=== PATIENT | male | born 1960 | race Caucasian/White ===

== ENCOUNTER 2018-09-03 14:50 | Emergency (ER) | payer BC ==
[2018-09-03 15:12] VITALS: RESP 18
[2018-09-03] MEDS ORDERED: KETOROLAC 30 MG/ML 1 ML VIAL IVP STA (16:07)
[2018-09-03] MEDS ORDERED: SODIUM CHLORIDE 0.9% 1,000 ML IV STA (16:07)
--- NOTE | 2018-09-03 16:12 | ED ---
General Adult HPI - General Chief complaint: Abdominal Pain Stated complaint: Poss kidney stones Time Seen by Provider: 09/03/18 15:25 Source: patient, RN notes reviewed Mode of arrival: ambulatory Limitations: no limitations - History of Present Illness Initial comments: Patient 58-year-old male presenting to the emergency room today with a chief complaint of left-sided flank pain that started approximately 2 hours ago. Patient does admit that feels similar to kidney stones that is had in the past. Currently rates pain 8/10. Does admit to some discomfort with voiding. Denies any other complaints currently. Patient denies any recent fever, chills, shortness of breath, chest pain, numbness or tingling, constipation or diarrhea , headaches or visual changes, or any other complaints. - Related Data Home Medications Medication Instructions Recorded Confirmed Aspirin EC [Ecotrin Low Dose] 81 mg PO DAILY 06/12/16 09/03/18 Calcium Carbonate [Calcium] 300 mg PO DAILY 06/12/16 09/03/18 Multivit-Mins/Iron/Folic/Lycop 1 each PO DAILY 07/14/16 09/03/18 [Centrum Men's Tablet] Glucosam/Roshan-Msm1/C/Joshua/Bosw 1 tab PO DAILY 09/03/18 09/03/18 [Glucosamine-Chondroitin Tablet] Previous Rx's Medication Instructions Recorded Tamsulosin [Flomax] 0.4 mg PO DAILY #14 cap 09/03/18 Allergies Allergy/AdvReac Type Severity Reaction Status Date / Time No Known Allergies Allergy Verified 09/03/18 15:42 Review of Systems ROS Statement: Those systems with pertinent positive or pertinent negative responses have been documented in the HPI. ROS Other: All systems not noted in ROS Statement are negative. Past Medical History Past Medical History: No Reported History, Hyperlipidemia Additional Past Medical History / Comment(s): kidney stones History of Any Multi-Drug Resistant Organisms: None Reported Past Surgical History: Appendectomy, Orthopedic Surgery, Tonsillectomy Additional Past Surgical History / Comment(s): vasectomy. COLONOSCOPY. LT SHOULDER ROTATOR CUFF Past Anesthesia/Blood Transfusion Reactions: No Reported Reaction Past Psychological History: No Psychological Hx Reported Smoking Status: Never smoker Past Alcohol Use History: Occasional Past Drug Use History: None Reported - Past Family History Mother Family Medical History: No Reported History General Exam - General Exam Comments Initial Comments: General: The patient is awake and alert, in no distress, and does not appear acutely ill. Eye: There is normal conjunctiva bilaterally. No signs of icterus. Ears, nose, mouth and throat: There are moist mucous membranes and no oral lesions. Neck: The neck is supple, there is no tenderness or JVD. Cardiovascular: There is a regular rate and rhythm. No murmur, rub or gallop is appreciated. Respiratory: Lungs are clear to auscultation, respirations are non-labored, breath sounds are equal. No wheezes, stridor, rales, or rhonchi. Gastrointestinal: Soft, non-distended, non-tender abdomen without masses or organomegaly noted. There is no rebound or guarding present. No CVA tenderness. Musculoskeletal: Normal ROM, no tenderness. Neurological: A&O x 3. CN II-XII intact, There are no obvious motor or sensory deficits. Coordination appears grossly intact. Speech is normal. Skin: Skin is warm and dry and no rashes or lesions are noted. Psychiatric: Cooperative, appropriate mood & affect, normal judgment. Limitations: no limitations Course Vital Signs 09/03/18 09/03/18 15:09 17:09 Temperature 97.5 F L Pulse Rate 75 62 Respiratory 18 18 Rate Blood Pressure 127/79 122/80 O2 Sat by Pulse 99 99 Oximetry Medical Decision Making - Medical Decision Making Patient reexamined at this time shows no signs of distress. He does admit that he thinks he may have passed kidney stone here in the emergency room. His urinalysis did show 61 red cells no sign of infection. Patient's remaining labs reviewed does have an 11,000 white count. She did admit to some abdominal pain was discussed about CT the abdomen and pelvis. He has declined. He states he does plan to follow-up with his family physician. Continue Flomax and anti-inflammatories for pain. He is advised to return here to emergency room if any symptoms increase or worsen. States understanding and is in agreement. - Lab Data Result diagrams: 09/03/18 17:02 09/03/18 17:02 Lab Results 09/03/18 09/03/18 09/03/18 Range/Units 17:02 17:02 17:02 WBC 11.2 H (3.8-10.6) k/uL RBC 5.22 (4.30-5.90) m/uL Hgb 17.7 H (13.0-17.5) gm/dL Hct 51.6 (39.0-53.0) % MCV 98.9 (80.0-100.0) fL MCH 33.8 (25.0-35.0) pg MCHC 34.2 (31.0-37.0) g/dL RDW 12.7 (11.5-15.5) % Plt Count 191 (150-450) k/uL Neutrophils % 83 % Lymphocytes % 9 % Monocytes % 6 % Eosinophils % 1 % Basophils % 0 % Neutrophils # 9.3 H (1.3-7.7) k/uL Lymphocytes # 1.0 (1.0-4.8) k/uL Monocytes # 0.7 (0-1.0) k/uL Eosinophils # 0.1 (0-0.7) k/uL Basophils # 0.0 (0-0.2) k/uL PT (9.0-12.0) sec INR (<1.2) APTT (22.0-30.0) sec Sodium 140 (137-145) mmol/L Potassium 4.8 (3.5-5.1) mmol/L Chloride 107 (98-107) mmol/L Carbon Dioxide 24 (22-30) mmol/L Anion Gap 9 mmol/L BUN 20 (9-20) mg/dL Creatinine 1.37 H (0.66-1.25) mg/dL Est GFR (CKD-EPI)AfAm 65 (>60 ml/min/1.73 sqM) Est GFR (CKD-EPI)NonAf 56 (>60 ml/min/1.73 sqM) Glucose 122 H (74-99) mg/dL Calcium 9.7 (8.4-10.2) mg/dL Total Bilirubin 0.6 (0.2-1.3) mg/dL AST 29 (17-59) U/L ALT 45 (21-72) U/L Alkaline Phosphatase 60 (38-126) U/L Total Protein 7.4 (6.3-8.2) g/dL Albumin 4.4 (3.5-5.0) g/dL Amylase 114 H (30-110) U/L Lipase 244 (23-300) U/L Urine Color Yellow Urine Appearance Clear (Clear) Urine pH 5.5 (5.0-8.0) Ur Specific [place] 1.015 (1.001-1.035) Urine Protein Trace H (Negative) Urine Glucose (UA) Negative (Negative) Urine Ketones Negative (Negative) Urine Blood Moderate H (Negative) Urine Nitrite Negative (Negative) Urine Bilirubin Negative (Negative) Urine Urobilinogen <2.0 (<2.0) mg/dL Ur Leukocyte Esterase Negative (Negative) Urine RBC 61 H (0-5) /hpf Urine WBC 1 (0-5) /hpf Calcium Oxalate Crystal Occasional H (None) /hpf Urine Mucus Rare H (None) /hpf 09/03/18 Range/Units 17:02 WBC (3.8-10.6) k/uL RBC (4.30-5.90) m/uL Hgb (13.0-17.5) gm/dL Hct (39.0-53.0) % MCV (80.0-100.0) fL MCH (25.0-35.0) pg MCHC (31.0-37.0) g/dL RDW (11.5-15.5) % Plt Count (150-450) k/uL Neutrophils % % Lymphocytes % % Monocytes % % Eosinophils % % Basophils % % Neutrophils # (1.3-7.7) k/uL Lymphocytes # (1.0-4.8) k/uL Monocytes # (0-1.0) k/uL Eosinophils # (0-0.7) k/uL Basophils # (0-0.2) k/uL PT 10.1 (9.0-12.0) sec INR 0.9 (<1.2) APTT 24.3 (22.0-30.0) sec Sodium (137-145) mmol/L Potassium (3.5-5.1) mmol/L Chloride (98-107) mmol/L Carbon Dioxide (22-30) mmol/L Anion Gap mmol/L BUN (9-20) mg/dL Creatinine (0.66-1.25) mg/dL Est GFR (CKD-EPI)AfAm (>60 ml/min/1.73 sqM) Est GFR (CKD-EPI)NonAf (>60 ml/min/1.73 sqM) Glucose (74-99) mg/dL Calcium (8.4-10.2) mg/dL Total Bilirubin (0.2-1.3) mg/dL AST (17-59) U/L ALT (21-72) U/L Alkaline Phosphatase (38-126) U/L Total Protein (6.3-8.2) g/dL Albumin (3.5-5.0) g/dL Amylase (30-110) U/L Lipase (23-300) U/L Urine Color Urine Appearance (Clear) Urine pH (5.0-8.0) Ur Specific [place] (1.001-1.035) Urine Protein (Negative) Urine Glucose (UA) (Negative) Urine Ketones (Negative) Urine Blood (Negative) Urine Nitrite (Negative) Urine Bilirubin (Negative) Urine Urobilinogen (<2.0) mg/dL Ur Leukocyte Esterase (Negative) Urine RBC (0-5) /hpf Urine WBC (0-5) /hpf Calcium Oxalate Crystal (None) /hpf Urine Mucus (None) /hpf Disposition Clinical Impression: Kidney stone Disposition: HOME SELF-CARE Condition: Good Instructions: Kidney Stones (ED) Additional Instructions: Please use medication as discussed. Please follow-up with family doctor in the next 2 days of symptoms have not improved. Please return to emergency room if the symptoms increase or worsen or for any other concerns. Prescriptions: Tamsulosin [Flomax] 0.4 mg PO DAILY #14 cap Is patient prescribed a controlled substance at d/c from ED?: No Referrals: Crow Weathers MD [Primary Care Provider] - 1-2 days Time of Disposition: 17:44
[2018-09-03 17:13] LABS: Basophils % (A) 0 %; Eosinophils # (A) 0.1 k/uL (0-0.7); Eosinophils % (A) 1 %; HCT 51.6 % (39.0-53.0); HGB 17.7 gm/dL (13.0-17.5); Lymphocytes % (A) 9 %; MCH 33.8 pg (25.0-35.0); MCHC 34.2 g/dL (31.0-37.0); MCV 98.9 fL (80.0-100.0); Mean Platelet Volume 7.2; Monocytes # (A) 0.7 k/uL (0-1.0); Monocytes % (A) 6 %; Neutrophils # (A) 9.3 k/uL (1.3-7.7); Neutrophils % (A) 83 %; Platelet Count 191 k/uL (150-450); RBC 5.22 m/uL (4.30-5.90); RDW 12.7 % (11.5-15.5); WBC 11.2 k/uL (3.8-10.6)
[2018-09-03 17:17] LABS: Appearance,Urine Clear (Clear); Bilirubin,Urine Negative (Negative); Blood,Urine Moderate (Negative); Calcium Oxalate Crystals,Urine Occasional /hpf; Color,Urine Yellow; Glucose,Urine (UA) Negative (Negative); Ketones,Urine Negative (Negative); Leukocyte Esterase,Urine Negative (Negative); Mucus,Urine Rare /hpf; Nitrite,Urine Negative (Negative); PH, Urine 5.5 (5.0-8.0); Protein,Urine Trace (Negative); RBC,Urine 61 /hpf (0-5); Specific Gravity,Urine 1.015 (1.001-1.035); Urobilinogen,Urine <2.0 mg/dL (<2.0)
[2018-09-03 17:21] LABS: Albumin 4.4 g/dL (3.5-5.0); Calcium 9.7 mg/dL (8.4-10.2); Potassium 4.8 mmol/L (3.5-5.1); Total Bilirubin 0.6 mg/dL (0.2-1.3); Total Protein 7.4 g/dL (6.3-8.2)
[2018-09-03 17:26] LABS: INR 0.9 (<1.2); Partial Thromboplastin Time 24.3 sec (22.0-30.0); Prothrombin Time 10.1 sec (9.0-12.0)
--- NOTE | 2018-09-03 17:47 | XR ---
EXAMINATION TYPE: XR KUB DATE OF EXAM: 09/03/2018 COMPARISON: 04/04/2015 INDICATION: Abdomen pain, left flank pain TECHNIQUE: Single view abdomen upright view FINDINGS: There is a normal bowel gas pattern. Psoas margins are normal. No organomegaly is present. There is a 1.0 cm calcification at the inferior pole left kidney. Punctate 0.2 cm calcification may be over the mid right kidney. Ureteral calcifications are identified. Calcification on the left appea rs larger than the comparison. IMPRESSION: 1. 1 cm left renal stone. Punctate right renal stone may also be present.
[2018-09-03 17:59] VITALS: BP 119/78; PULSE 78; TEMP 97.9
== END 2018-09-03 17:56 | disposition home or self-care (01) ==
LOC: EC 14:50
DX: N20.0 Calculus of kidney (principal); Z79.82 Long term (current) use of aspirin; Z79.899 Other long term (current) drug therapy; Z90.49 Acquired absence of other specified parts of digestive tract; Z53.20 Procedure and treatment not carried out because of patient's decision for unspecified reasons
CPT/HCPCS: 99284 ×2; 96374 ×2; 96361 ×2; 36415; 80053; 82150; 83690; 85025; 85610; 85730; 81001; 74018; J1885

== ENCOUNTER → 2019-07-29 | Outpatient (CLI) | payer BC ==
--- NOTE | 2019-07-29 12:53 | US ---
EXAMINATION TYPE: US abdomen complete DATE OF EXAM: 07/29/2019 COMPARISON: None CLINICAL HISTORY: K85.90 ACUTE PANCREATITIS WITHOUT NECROSIS OR INFECTION. Abnormal labs, no surgerie s, hx of renal stones EXAM MEASUREMENTS: Liver Length: 12.5 cm Gallbladder Wall: 0.2 cm CHD: 0.3 cm Spleen: 8.8 cm Right Kidney: 9.6 x 5.2 x 5.6 cm Left Kidney: 9.8 x 4.6 x 6.1 cm Limited due to overlying bowel gas Pancreas: Obscured by bowel gas Liver: Scanned through ribs. No prominent masses or lesions visualized. Gallbladder: wnl Evidence for sonographic Kelly's sign: neg CBD: Obscured by overlying bowel gas CHD: wnl Spleen: wnl Right Kidney: Right renal sinus cyst measures 1.3 cm. There are 2 nonobstructing right renal calculi both measuring 6 mm. Left Kidney: Nonobstructing left renal calculus measures 9 mm. Upper IVC: wnl Abd Aorta: Mid portion obscured by overlying bowel gas. No AAA visualized in portions seen. The liver is homogenous. The intrahepatic portion of the IVC and proximal abdominal aorta are within normal limits. There is no evidence of cholelithiasis. Common bile duct is unremarkable. The panc reas is obscured. The spleen is unremarkable. Kidneys are symmetric and free of hydronephrosis. IMPRESSION: 1. Pancreas is entirely obscured by bowel gas. 2. Bilateral nonobstructing renal calculi and simple right renal cyst.
== END | disposition home or self-care (01) ==
LOC: RADUSWWP 10:36
PROVIDERS: ATTEND Family Medicine
DX: N20.0 Calculus of kidney (principal); N28.1 Cyst of kidney, acquired
CPT/HCPCS: 76700

== ENCOUNTER → 2019-10-31 | Outpatient (CLI) | payer BC ==
--- NOTE | 2019-10-31 09:22 | MR ---
EXAMINATION TYPE: MR MRCP DATE OF EXAM: 10/31/2019 COMPARISON: CT urogram May 07, 2015. Most recent complete abdominal ultrasound July 29, 2019 . HISTORY: Acute Pancreatitis Standard multiplanar, multisequence MRI departmental protocol Multiplanar, multisequence images of the abdomen focusing on the pancreas were acquired. Thin and thi ck slice MRCP imaging is performed on MRI scanner and reviewed. FINDINGS: Pancreas/gallbladder/liver/biliary system: Pancreas remains normal in size without concerning solid o r cystic mass or surrounding fluid. Liver size stable and not enlarged. No worrisome solid or cystic intrahepatic mass. Gallbladder redemonstrated without intraluminal gallstones. MRCP images show visua lization of the main pancreatic duct which measures upper limits of normal throughout its entire cour se and is seen to the ampulla. There is no suspicious intrahepatic or extrahepatic biliary dilatation . Poor visualization of short segment of the distal CBD near ampulla makes evaluation this level subo ptimal presumed normal without proximal dilatation. Other: Lung bases are grossly clear. There are simple appearing thin-walled cysts scattered throughou t both kidneys. Tiny bilateral calculi on CT and ultrasound less well seen on MRI. Stable slight thic kening to both adrenal glands consistent with lipid rich hyperplasia as there is diffuse signal dropo ut. Spleen is unremarkable. No suspicious small or large bowel dilatation. No abdominal ascites or ad enopathy. Visualized osseous structures show slight scoliotic curvature with endplate changes along w ith spurring in the mid to lower lumbar spine. IMPRESSION: Noncontrast MRI/MRCP shows no complication related to acute pancreatitis. No suspicious p ancreatic or biliary ductal dilatation or obstructing lesion identified.
== END | disposition home or self-care (01) ==
LOC: RADMRIMAIN 08:10
PROVIDERS: ATTEND Physician Assistant
DX: K85.90 Acute pancreatitis without necrosis or infection, unspecified (principal)
CPT/HCPCS: 74181

== ENCOUNTER → 2022-09-10 | Outpatient (CLI) | payer BC ==
--- NOTE | 2022-09-10 08:09 | US ---
EXAMINATION TYPE: US abdomen complete DATE OF EXAM: 09/10/2022 COMPARISON: US CLINICAL HISTORY: R10.9 unsp abdominal pain. Pt states generalized, intermittent ABD pain TECHNIQUE: Multiple sonographic images of the abdomen are obtained. FINDINGS: EXAM MEASUREMENTS: Liver Length: 11.5 cm Gallbladder Wall: 0.2 cm CBD: 0.2 cm Spleen: 8.1 cm Right Kidney: 10.7 x 5.5 x 5.1 cm Left Kidney: 9.9 x 5.5 x 4.8 cm WOOD SCALER NOTES: Pancreas: body wnl, head and tail obscured by overlying bowel gas Liver: Visualized portions appeared wnl Gallbladder: wnl Evidence for sonographic Kelly's sign: No CBD: wnl Spleen: wnl Right Kidney: Multiple probable renal calculi scattered throughout, a renal calculi mid/medial= 1.8 cm causing hydronephrosis Left Kidney: No evidence of hydro, multiple probable renal calculi scattered throughout, largest= 1. 2 cm Upper IVC: wnl Abd Aorta: wnl The liver is homogenous. The intrahepatic portion of the IVC and proximal abdominal aorta are within normal limits. There is no evidence of cholelithiasis. Common bile duct is unremarkable. The visu alized portions of the pancreas are homogenous. The spleen is unremarkable. No renal lesions are se en. IMPRESSION: Right renal pelvis calculus measuring up to 1.8 cm with mild hydronephrosis
[2022-09-10 10:33] LABS: Basophils # (A) 0.04 X 10*3/uL (0.00-0.10); Basophils % (A) 0.7 %; Eosinophils # (A) 0.07 X 10*3/uL (0.04-0.35); Eosinophils % (A) 1.3 %; HCT 44.8 % (39.6-50.0); HGB 14.7 g/dL (13.0-17.0); Immature Grans, Automated 0.2 %; Lymphocytes # (A) 1.42 X 10*3/uL (0.90-5.00); Lymphocytes % (A) 25.8 %; MCHC 32.8 g/dL (32.0-37.0); MCV 97.4 fL (80.0-97.0); Mean Platelet Volume 10.8 fL (9.5-12.2); Monocytes # (A) 0.58 X 10*3/uL (0.20-1.00); Monocytes % (A) 10.5 %; NRBC Per 100 WBC 0 /100 WBCS (0.0-0.0); Neutrophils # (A) 3.39 X 10*3/uL (1.80-7.70); Neutrophils % (A) 61.5 %; Platelet Count 210 X 10*3/uL (140-440); RDW 12.7 % (11.5-14.5); WBC 5.51 X 10*3/uL (4.50-10.00)
[2022-09-11 02:56] LABS: African American GFR (CKD) 82.4 (60.0-200.0); Albumin/Globulin Ratio 1.6 (1.60-3.17); Anion Gap 10.1 mmol/L (10.00-18.00); BUN/Creat Ratio 17.55 Ratio (12.00-20.00); Blood Urea Nitrogen 19.3 mg/dL (9.0-27.0); Calcium 9.3 mg/dL (8.7-10.3); Carbon Dioxide 21.9 mmol/L (20.0-27.5); Globulin 2.5 g/dL (1.6-3.3); Non-African American GFR(CKD) 71.1 (60.0-200.0); Potassium 4.1 mmol/L (3.5-5.5); Total Bilirubin 0.6 mg/dL (0.30-1.20); Total Protein 6.5 g/dL (6.2-8.2)
== END | disposition home or self-care (01) ==
LOC: RADUSWWP 07:27
PROVIDERS: ATTEND Family Medicine
DX: N13.2 Hydronephrosis with renal and ureteral calculous obstruction (principal)
CPT/HCPCS: 76700; 80053; 82150; 83690; 85025

== ENCOUNTER → 2023-04-17 | Outpatient (CLI) | payer BC ==
--- NOTE | 2023-04-17 09:32 | US ---
EXAMINATION TYPE: US abdomen complete DATE OF EXAM: 04/17/2023 COMPARISON: US & CT CLINICAL INDICATION: Male, 63 years old with history of K85.10 BILIARY ACUTE PANCREATITIS WITHOUT NE CROSIS; ABD pain TECHNIQUE: Multiple sonographic images of the abdomen are obtained. FINDINGS: EXAM MEASUREMENTS: Liver Length: 14.4 cm Gallbladder Wall: 0.1 cm CBD: 0.3 cm Spleen: 8.0 cm Right Kidney: 10.6 x 5.7 5.9 cm Left Kidney: 10.1 x 5.6 x 5.2 cm Pancreas: 3mm panc duct visualized, tail obscured by overlying bowel gas Liver: wnl Gallbladder: wnl Evidence for sonographic Kelly's sign: No CBD: wnl Spleen: wnl Right Kidney: No evidence of hydro, multiple renal calculi scattered throughout Left Kidney: No evidence of hydro, multiple renal calculi scattered throughout Upper IVC: wnl Abd Aorta: wnl The liver is homogenous. The intrahepatic portion of the IVC and proximal abdominal aorta are within normal limits. There is no evidence of cholelithiasis. Common bile duct is unremarkable. The visu alized portions of the pancreas are homogenous. The spleen is unremarkable. Kidneys are symmetric a nd free of hydronephrosis. No renal lesions are seen. IMPRESSION: Limited evaluation of the pancreas due to bowel gas. Bilateral renal calculi without evidence for acute process.
== END | disposition home or self-care (01) ==
LOC: RADUSWWP 08:52
PROVIDERS: ATTEND Family Medicine
DX: K85.10 Biliary acute pancreatitis without necrosis or infection (principal); N20.0 Calculus of kidney
CPT/HCPCS: 76700

== ENCOUNTER → 2024-05-10 | Outpatient (CLI) | payer MEDICARE, OTHER ==
--- NOTE | 2024-05-24 07:28 | US ---
EXAMINATION TYPE: US prostate transrectal DATE OF EXAM: 05/10/2024 COMPARISON: CT 2022, US 2010 CLINICAL INDICATION: Male, 64 years old with history of R97.20 ELEVATED PROSTATE SPECIFIC ANTIGEN; This examination was performed using the transrectal probe. EXAM MEASUREMENTS: Gland Size: 5.6 x 4.0 x 5.3cm Volume: 61.3ml Predicted PSA: 7.42 Actual PSA (if available):3.64 Enlarged heterogeneous gland with calcifications IMPRESSION: 1. No discrete suspicious hypoechoic lesions Predicted PSA = volume x 0.12 ng/ml Calculated Volume = 0.5236 x L x W x [facility], Workstation: [id number], 05/24/2024 7:26 AM
== END | disposition home or self-care (01) ==
LOC: RADUSWWP 12:49
PROVIDERS: ATTEND Family Medicine
DX: R97.20 Elevated prostate specific antigen [PSA] (principal)
CPT/HCPCS: 76872